=== PATIENT | male | born 1945 | race Caucasian/White ===

== ENCOUNTER 2019-07-08 20:44 | Inpatient (IN) ==
[~2019-07-08 20:44] MED LIST: *HR* Amiodarone 450 MG/9 ML VIAL IVC ONE; *HR* Amiodarone Premix 360 MG/200 ML BAG IVC ONE; *HR* EPINEPHrine 1 MG/10 ML SYRINGE IVP ONE; *HR* Magnesium Sulfate 2 GM/50 ML PIGGYBACK IVPB ONE; *HR* Norepinephrine 4 MG/4 ML VIAL IVC ONE
[2019-07-08 21:17] LABS: ABG Base Excess -19 mEq/L (-2 to 3); ABG HCO3 12 mEq/L (21-27); ABG Oxygen Saturation 63 % (95-98); ABG PCO2 53 mmHg (35-45); ABG PH 6.96 pH Units (7.32-7.45); ABG PO2 51 mmHg (85-104); ABG TCO2 14 mEq/L (20-26)
[2019-07-08] MEDS ORDERED: Dexmedetomidine HCl 400 MCG/100 ML MLS IVC ONE (21:19)
[2019-07-08] MEDS ORDERED: *HR* Vasopressin 20 UNIT/ML VIAL ONE (21:22)
[2019-07-08 21:28] LABS: Hematocrit 31.1 % (37.5-50.1); Hemoglobin 9.5 g/dL (12.9-16.9); Mean Corpuscular HGB Conc 30.5 g/dL (31.6-35.5); Mean Corpuscular Hemoglobin 31.4 pg (28.0-33.3); Mean Corpuscular Volume 102.6 fL (83.0-100.0); Mean Platelet Volume 11.7 fL (9.4-12.4); Nucleated Red Blood Cells 3.5 /100 WBC (0); Platelet Count 111 K/mcL (140-400); Red Blood Count 3.03 M/mcL (4.19-5.50); Red Cell Distribution Width 16.5 % (11.5-14.5); White Blood Count 14.3 K/mcL (4.3-11.1)
[2019-07-08] MEDS ORDERED: Amiodarone Premix 360 MG/200 ML BAG IVC ONE (21:40)
[2019-07-08 21:44] LABS: INR 2.1
[2019-07-08] MEDS ORDERED: Norepinephrine 4 MG in 0.9 % Sodium Chloride 250 ML IVC SCH (21:45)
[2019-07-08] MEDS ORDERED: Vasopressin 40 UNIT in D5% in Water 100 ML IVC SCH (21:45)
[2019-07-08] MEDS ORDERED: Dexmedetomidine HCl 400 MCG/100 ML MLS IVC SCH (21:45)
--- NOTE | 2019-07-08 21:48 | Emergency Department Note ---
Disposition Clinical Impression: Cardiac arrest, Hyperkalemia, Septic shock, Acute kidney injury superimposed on CKD, Sudden cardiac , Acute respiratory failure Disposition: Admitted As Inpatient Condition: Critical Time of Disposition: 23:15 CPR HPI - General Chief Complaint: ED Cardiac Arrest/CPR Stated Complaint: full arrest Time Seen by Provider: 07/08/19 21:43 Source: EMS Mode of arrival: EMS Nursing Notes Reviewed: Yes Vital Signs Reviewed: Yes - History of Present Illness HPI Narrative: 73M with PMHx of afib on Xarelto, HTN, DM and CKD presents to the emergency department in full cardiac arrest. - Related Data Allergies Allergy/AdvReac Type Severity Reaction Status Date / Time No Known Allergies Allergy Verified 07/08/19 20:58 Limitations: ROS unobtainable due to patients medical condition CPR PMH - Past Medical History Medical history: Reports: diabetes, hypertension, renal disease - Social History Smoking Status: Unknown if ever smoked Physical Exam Physical exam unable to be performed in full due to patient being in cardiac arrest. Pupils are dilated and nonreactive. No breath sounds or heart sounds heard. Pulses palpable with compressions. Course Vital Signs Temperature 0 F L 07/08/19 20:44 Pulse Rate 0 07/08/19 20:44 Respiratory Rate 0 07/08/19 20:44 Blood Pressure 0/0 07/08/19 20:44 O2 Sat by Pulse Oximetry 0 07/08/19 20:44 Temperature 0 F L 07/08/19 20:44 Pulse Rate 0 07/08/19 20:44 Respiratory Rate 19 07/08/19 22:46 Blood Pressure 0/0 07/08/19 20:44 O2 Sat by Pulse Oximetry 98 07/08/19 22:46 Procedures - EJ/Peripheral Line Neck L Time Out Performed: Yes Skin Cleansed in Sterile Fashion: Yes Size: 18 IV Secured and Dressing Applied: Yes Patient Tolerated Procedure: well, no complications Cardiac Arrest/CPR - MDM Narrative Medical decision making narrative: Patient presented to the emergency department in full cardiac arrest at 2042. Compressions were maintained upon transfer from EMS cot to the emergency department bed. At 2043 the patient was intubated by Dr. Mendez and a first pulse check as there was a pulse. EKG was obtained at 2045 which did not demonstrate acute ST elevation. When her glucose was 237. IO was obtained in the left lower extremity. First blood pressure was 72/37. She was noted to be in V. tach at 2051 and was going in between V. tach and sinus rhythm over the next several minutes. No shocks were initially applied. He was started on levophed for blood pressure support and calcium and amiodarone 150 loading dose were given for the patient's intermittent V. tach. Pressures continued to drop to 42/21 and half a milligram of epinephrine was given through the IO. After the 150 bolus of amiodarone the patient was started on an amiodarone drip. Central venous access was obtained through the right femoral vein via ultrasound guidance by Dr. Campuzano. The patient remained in V. tach at 2100 and was hypotensive therefore shock was applied with 2 g of mag. 2 A of bicarbonate were given for the patient's significant acidosis from an ABG obtained with a pH of less than 7. The patient lost pulses at 2106 and was in V. tach, compressions were started and another 200 J shock was administered which resulted in the resumption of pulses. Another 2 g of magnesium were given at this time. A liter of normal saline was started and the patient remained in V. tach with low blood pressures at 68/49. A third shock was given due to increasing tachycardia and decreasing blood pressure at 2121. After this time the patient resumed normal sinus rhythm with good pressures and palpable pulses. Vasopressin was started at 2127 as well as Precedex as the patient began breathing over the vent and having some upper body movement. Nova was placed, EJ was obtained in the left side of the neck and the patient was taken down for CT of the head, chest, abdomen and pelvis. Patient has an elevated lactic acid of 8.7, as well as a leukocytosis. We will start the patient on Zosyn and await other lab results. 2211 - pts potassium was reported to be 7.5 therefore we will give the pt IV insulin, Dextrose, and 20mg albuterol nebs and speak with the family about further goals of care. 2245 - after a long discussion with the family about the need for dialysis versus what the patient had wished for, the family came to the conclusion that the patient would not want to be on a breathing machine or be on dialysis. The family has agreed to make the patient DNR CC and to stop all measures other than comfort care. All medications will be stopped besides IV fluids and Precedex and they have agreed to leave the patient on the ventilator. We will not pursue dialysis or treat the patient's potential sepsis and hyperkalemia with any medications at this time. Pts CT imaging did not demonstrate any acute intracranial process but CT of the abdomen shows free fluid in the abdomen and inflammation around the pancreas suggestive of PUD, duodenitis or acute pancreatitis. 2314 - pt has been admitted to the ICU on CC measures by Dr. Keen - Medical Records Medical records reviewed: Yes I reviewed the patient's medical records. - Lab Data Lab results reviewed: Yes I reviewed the patient's lab results. Result diagrams: 07/08/19 20:53 07/08/19 21:20 Lab Results 07/08/19 07/08/19 07/08/19 Range/Units 20:53 20:53 21:00 WBC 14.3 H (4.3-11.1) K/mcL RBC 3.03 L (4.19-5.50) M/mcL Hgb 9.5 L (12.9-16.9) g/dL Hct 31.1 L (37.5-50.1) % MCV 102.6 H (83.0-100.0) fL MCH 31.4 (28.0-33.3) pg MCHC 30.5 L (31.6-35.5) g/dL RDW 16.5 H (11.5-14.5) % Plt Count 111 L (140-400) K/mcL MPV 11.7 (9.4-12.4) fL Seg Neutrophils % 62.0 % Band Neutrophils % 8.0 H (0-4) % Lymphocytes % 18.0 % Monocytes % 12.0 % Neutrophils # 10.0 H (1.6-8.9) K/mcL Lymphocytes # 2.6 (0.6-4.6) K/mcL Monocytes # 1.7 H (0.0-1.3) K/mcL Nucleated RBCs/100 WBC 3.5 H (0) /100 WBC Reactive Lymphocytes Present A (Not Present) Platelet Estimate Decreased L (Normal) PT 24.0 H (9.4-12.1) Seconds INR 2.1 Sample Site ABG pH 6.96 L* (7.32-7.45) pH Units ABG pCO2 53 H (35-45) mmHg ABG pO2 51 L (85-104) mmHg ABG HCO3 12 L (21-27) mEq/L ABG Total CO2 14 L (20-26) mEq/L ABG O2 Saturation 63 L (95-98) % ABG Base Excess -19 L (-2 to 3) mEq/L William Test O2 Delivery Device ET Tube Inspired O2 100.0 (1-15=lpm zw72-568=%) Sodium (136-145) mEq/L Potassium (3.5-5.1) mEq/L Chloride (98-107) mEq/L Carbon Dioxide (23-29) mEq/L BUN (8-23) mg/dL Creatinine (0.70-1.30) mg/dL Est GFR ( Amer) (> 60) Est GFR (Non-Af Amer) (> 60) BUN/Creatinine Ratio (6-26) Glucose (70-105) mg/dL Calculated Osmolality (280-300) Lactic Acid (0.5-2.2) mmol/L Calcium (8.6-10.3) mg/dL Magnesium (1.6-2.6) mg/dL Total Bilirubin (0.3-1.0) mg/dL Direct Bilirubin (0.0-0.2) mg/dL Indirect Bilirubin (0.0-1.2) mg/dL AST (13-39) Units/L ALT (7-52) Units/L Alkaline Phosphatase (34-104) Units/L Serum Total Protein (6.4-8.9) g/dL Albumin (3.5-5.7) g/dL Globulin (2.4-3.5) g/dL Albumin/Globulin Ratio (1.1-2.2) [facility] Blood Type Antibody Screen 07/08/19 07/08/19 07/08/19 Range/Units 21:20 21:20 21:20 WBC (4.3-11.1) K/mcL RBC (4.19-5.50) M/mcL Hgb (12.9-16.9) g/dL Hct (37.5-50.1) % MCV (83.0-100.0) fL MCH (28.0-33.3) pg MCHC (31.6-35.5) g/dL RDW (11.5-14.5) % Plt Count (140-400) K/mcL MPV (9.4-12.4) fL Seg Neutrophils % % Band Neutrophils % (0-4) % Lymphocytes % % Monocytes % % Neutrophils # (1.6-8.9) K/mcL Lymphocytes # (0.6-4.6) K/mcL Monocytes # (0.0-1.3) K/mcL Nucleated RBCs/100 WBC (0) /100 WBC Reactive Lymphocytes (Not Present) Platelet Estimate (Normal) PT (9.4-12.1) Seconds INR Sample Site ABG pH (7.32-7.45) pH Units ABG pCO2 (35-45) mmHg ABG pO2 (85-104) mmHg ABG HCO3 (21-27) mEq/L ABG Total CO2 (20-26) mEq/L ABG O2 Saturation (95-98) % ABG Base Excess (-2 to 3) mEq/L William Test O2 Delivery Device Inspired O2 (1-15=lpm te16-286=%) Sodium 133 L (136-145) mEq/L Potassium 7.5 H* (3.5-5.1) mEq/L Chloride 103 (98-107) mEq/L Carbon Dioxide 16 L (23-29) mEq/L BUN 75 H (8-23) mg/dL Creatinine 4.30 H (0.70-1.30) mg/dL Est GFR ( Amer) 16 L (> 60) Est GFR (Non-Af Amer) 14 L (> 60) BUN/Creatinine Ratio 17 (6-26) Glucose 224 H (70-105) mg/dL Calculated Osmolality 305 H (280-300) Lactic Acid 8.7 H* (0.5-2.2) mmol/L Calcium 10.2 (8.6-10.3) mg/dL Magnesium 3.7 H (1.6-2.6) mg/dL Total Bilirubin 1.2 H (0.3-1.0) mg/dL Direct Bilirubin 0.5 H (0.0-0.2) mg/dL Indirect Bilirubin 0.7 (0.0-1.2) mg/dL AST 198 H (13-39) Units/L ALT 107 H (7-52) Units/L Alkaline Phosphatase 103 (34-104) Units/L Serum Total Protein 5.1 L (6.4-8.9) g/dL Albumin 3.0 L (3.5-5.7) g/dL Globulin 2.1 L (2.4-3.5) g/dL Albumin/Globulin Ratio 1.4 (1.1-2.2) [facility] Blood Type O POSITIVE Antibody Screen NEGATIVE 07/08/19 Range/Units 21:21 WBC (4.3-11.1) K/mcL RBC (4.19-5.50) M/mcL Hgb (12.9-16.9) g/dL Hct (37.5-50.1) % MCV (83.0-100.0) fL MCH (28.0-33.3) pg MCHC (31.6-35.5) g/dL RDW (11.5-14.5) % Plt Count (140-400) K/mcL MPV (9.4-12.4) fL Seg Neutrophils % % Band Neutrophils % (0-4) % Lymphocytes % % Monocytes % % Neutrophils # (1.6-8.9) K/mcL Lymphocytes # (0.6-4.6) K/mcL Monocytes # (0.0-1.3) K/mcL Nucleated RBCs/100 WBC (0) /100 WBC Reactive Lymphocytes (Not Present) Platelet Estimate (Normal) PT (9.4-12.1) Seconds INR Sample Site L Fem ABG pH 7.24 L D (7.32-7.45) pH Units ABG pCO2 29 L D (35-45) mmHg ABG pO2 302 H D (85-104) mmHg ABG HCO3 13 L (21-27) mEq/L ABG Total CO2 13 L (20-26) mEq/L ABG O2 Saturation 100 H (95-98) % ABG Base Excess -14 L (-2 to 3) mEq/L William Test N/A O2 Delivery Device Bagging Inspired O2 100.0 (1-15=lpm ve36-415=%) Sodium (136-145) mEq/L Potassium (3.5-5.1) mEq/L Chloride (98-107) mEq/L Carbon Dioxide (23-29) mEq/L BUN (8-23) mg/dL Creatinine (0.70-1.30) mg/dL Est GFR ( Amer) (> 60) Est GFR (Non-Af Amer) (> 60) BUN/Creatinine Ratio (6-26) Glucose (70-105) mg/dL Calculated Osmolality (280-300) Lactic Acid (0.5-2.2) mmol/L Calcium (8.6-10.3) mg/dL Magnesium (1.6-2.6) mg/dL Total Bilirubin (0.3-1.0) mg/dL Direct Bilirubin (0.0-0.2) mg/dL Indirect Bilirubin (0.0-1.2) mg/dL AST (13-39) Units/L ALT (7-52) Units/L Alkaline Phosphatase (34-104) Units/L Serum Total Protein (6.4-8.9) g/dL Albumin (3.5-5.7) g/dL Globulin (2.4-3.5) g/dL Albumin/Globulin Ratio (1.1-2.2) Person Notif of Crit Blood Type Antibody Screen - Radiology Data Radiology results reviewed: Yes I reviewed the patient's radiology results. - EKG Data EKG attestation: Yes I reviewed and interpreted this EKG. EKG results narrative: EKG obtained at 5 on 07/08/2019 Sinus tachycardia with right bundle branch block at 109 bpm. No signs of ST seg ment elevations or depressions. No acute T-wave abnormalities. No old EKG for comparison. Repeat EKG obtained at 2151 on EKG read as atrial fibrillation but in actuality seems to be normal sinus rhythm at 89 bpm. Nonspecific intraventricular conduction delay. No signs of ST segment elevations or depressions. Attestation Statement - Attestation Attestation: I have seen this patient with the resident physician, I have personally evaluated this patient. I had reviewed the chart and document dictation by the resident physician and aM in agreement with the information documented by the resident physician. Please see documentation by the resident physician for complete chart including past medical history, family medical history, review of systems, current history and physical and laboratory and imaging studies. I was present for all procedures, provided direct supervision for all proced ures, was present for the entirety of all procedures and provided direct guidance during the procedures. Please see documentation by the resident physician for any procedures performed. I have reviewed all interpretations of EKGs, and reviewed all EKGs performed on patient's as well. I have also reviewed reports of imaging as provided by radiology.
[2019-07-08 21:55] LABS: Lymphocytes # 2.6 K/mcL (0.6-4.6); Monocytes # 1.7 K/mcL (0.0-1.3); Reactive Lymphocytes Present (Not Present)
[2019-07-08 21:56] LABS: Platelet Estimate Decreased (Normal)
[2019-07-08] MEDS ORDERED: Piperacillin/Tazobactam 3.375 GM in 0.9 % Sodium Chloride Mini Bag 100 ML IVPB ONE (21:57)
--- NOTE | 2019-07-08 21:58 | Emergency Department Note ---
Disposition Clinical Impression: Cardiac arrest, Hyperkalemia, Septic shock, Acute kidney injury superimposed on CKD, Sudden cardiac , Acute respiratory failure Disposition: Admitted As Inpatient Condition: Critical Time of Disposition: 22:00 General Adult HPI - General Chief complaint: ED Cardiac Arrest/CPR Stated complaint: full arrest Time Seen by Provider: 07/08/19 21:43 Source: EMS Mode of arrival: EMS - History of Present Illness HPI Narrative: This is a procedure note only. Please refer to Dr. Segal's and Dr. Dumont's for further evaluation and treatment of this patient. Pain Scale: 0 - Related Data Allergies Allergy/AdvReac Type Severity Reaction Status Date / Time No Known Allergies Allergy Verified 07/08/19 20:58 Past Medical History - Past Medical History Medical history: Reports: diabetes, hypertension, renal disease - Social History Smoking Status: Unknown if ever smoked Course Vital Signs Temperature 0 F L 07/08/19 20:44 Pulse Rate 0 07/08/19 20:44 Respiratory Rate 0 07/08/19 20:44 Blood Pressure 0/0 07/08/19 20:44 O2 Sat by Pulse Oximetry 0 07/08/19 20:44 Temperature 0 F L 07/08/19 20:44 Pulse Rate 0 07/08/19 20:44 Respiratory Rate 0 07/08/19 20:44 Blood Pressure 0/0 07/08/19 20:44 O2 Sat by Pulse Oximetry 0 07/08/19 20:44 Procedures - Central Line Placement Right Femoral Central Line Inserted*: Yes Central Line Insertion: emergent Procedural Pause: verify patient name and date of , keith and assess the site, assemble equipment and verify supplies, perform hand hygiene Patient Placed on Monitor/Pulse Ox: Yes During the Procedure: clinician is wearing sterile gloves, cap, mask,& gown during insertion, sterile field and sterile technique are maintained, patient's face is covered with drape or mask and wearing a cap Central Line Prep: Chlorhexidine scrub, sterile drapes applied Prep the Procedure Site: apply chloraprep to the skin using a back and forth scrubbing motion, allow prep to dry, drape the patient with a full body drape Ultrasound Used for Placement: Yes Central Line Lumen Inserted: triple Post Procedure: sutured in place, good blood return (In one port.), all ports aspirated, flushed, capped, sterile dressing applied, guide wire removed and visualized Patient Tolerated Procedure: well Complications: hematoma at puncture site, arterial puncture/cannulation Name of Clinician Inserting Central Line: Pollo Campuzano Clinician Assisting/Completing Checklist: Edmundo Dumont Date: 07/08/19 Time: 21:15 Medical Decision Making - Lab Data Result diagrams: 07/08/19 20:53 07/08/19 21:20 Lab Results 07/08/19 07/08/19 07/08/19 Range/Units 20:53 20:53 21:00 WBC 14.3 H (4.3-11.1) K/mcL RBC 3.03 L (4.19-5.50) M/mcL Hgb 9.5 L (12.9-16.9) g/dL Hct 31.1 L (37.5-50.1) % MCV 102.6 H (83.0-100.0) fL MCH 31.4 (28.0-33.3) pg MCHC 30.5 L (31.6-35.5) g/dL RDW 16.5 H (11.5-14.5) % Plt Count 111 L (140-400) K/mcL MPV 11.7 (9.4-12.4) fL Seg Neutrophils % 62.0 % Band Neutrophils % 8.0 H (0-4) % Lymphocytes % 18.0 % Monocytes % 12.0 % Neutrophils # 10.0 H (1.6-8.9) K/mcL Lymphocytes # 2.6 (0.6-4.6) K/mcL Monocytes # 1.7 H (0.0-1.3) K/mcL Nucleated RBCs/100 WBC 3.5 H (0) /100 WBC Reactive Lymphocytes Present A (Not Present) Platelet Estimate Decreased L (Normal) PT 24.0 H (9.4-12.1) Seconds INR 2.1 ABG pH 6.96 L* (7.32-7.45) pH Units ABG pCO2 53 H (35-45) mmHg ABG pO2 51 L (85-104) mmHg ABG HCO3 12 L (21-27) mEq/L ABG Total CO2 14 L (20-26) mEq/L ABG O2 Saturation 63 L (95-98) % ABG Base Excess -19 L (-2 to 3) mEq/L O2 Delivery Device ET Tube Inspired O2 100.0 (1-15=lpm be61-221=%) Lactic Acid (0.5-2.2) mmol/L Person Notif of Crit edmundo dumont 07/08/19 Range/Units 21:20 WBC (4.3-11.1) K/mcL RBC (4.19-5.50) M/mcL Hgb (12.9-16.9) g/dL Hct (37.5-50.1) % MCV (83.0-100.0) fL MCH (28.0-33.3) pg MCHC (31.6-35.5) g/dL RDW (11.5-14.5) % Plt Count (140-400) K/mcL MPV (9.4-12.4) fL Seg Neutrophils % % Band Neutrophils % (0-4) % Lymphocytes % % Monocytes % % Neutrophils # (1.6-8.9) K/mcL Lymphocytes # (0.6-4.6) K/mcL Monocytes # (0.0-1.3) K/mcL Nucleated RBCs/100 WBC (0) /100 WBC Reactive Lymphocytes (Not Present) Platelet Estimate (Normal) PT (9.4-12.1) Seconds INR ABG pH (7.32-7.45) pH Units ABG pCO2 (35-45) mmHg ABG pO2 (85-104) mmHg ABG HCO3 (21-27) mEq/L ABG Total CO2 (20-26) mEq/L ABG O2 Saturation (95-98) % ABG Base Excess (-2 to 3) mEq/L O2 Delivery Device Inspired O2 (1-15=lpm [id number]=%) Lactic Acid 8.7 H* (0.5-2.2) mmol/L Person Notif of Crit Attestation Statement - Attestation Attestation: I have seen this patient with the resident physician, I have personally evaluated this patient. I had reviewed the chart and document dictation by the resident physician and aM in agreement with the information documented by the resident physician. Please see documentation by the resident physician for complete chart including past medical history, family medical history, review of systems, current history and physical and laboratory and imaging studies. I was present for all procedures, provided direct supervision for all procedures, was present for the entirety of all procedures and provided direct guidance during the procedures. Please see documentation by the resident physician for any procedures performed. I have reviewed all interpretations of EKGs, and reviewed all EKGs performed on patient's as well. I have also reviewed reports of imaging as provided by radiology.
[2019-07-08 22:07] LABS: Albumin/Globulin Ratio 1.4 (1.1-2.2); Bilirubin,Direct 0.5 mg/dL (0.0-0.2); Bilirubin,Indirect 0.7 mg/dL (0.0-1.2); Bilirubin,Total 1.2 mg/dL (0.3-1.0); Calcium 10.2 mg/dL (8.6-10.3); Globulin 2.1 g/dL (2.4-3.5); Magnesium 3.7 mg/dL (1.6-2.6); Potassium 7.5 mEq/L (3.5-5.1); Total Protein 5.1 g/dL (6.4-8.9)
[2019-07-08] MEDS ORDERED: Insulin Human Regular 10 UNIT in 0.9 % Sodium Chloride 10 ML IV ONE (22:07)
[2019-07-08] MEDS ORDERED: *HR* Dextrose 50 % in Water (Syg) 50 ML SYRINGE IVP ONE (22:07)
[2019-07-08] MEDS ORDERED: Albuterol 2.5 MG/3 ML NEBULIZER IH ONE (22:09)
[2019-07-08 22:41] LABS: ABG Base Excess -14 mEq/L (-2 to 3); ABG HCO3 13 mEq/L (21-27); ABG Oxygen Saturation 100 % (95-98); ABG PCO2 29 mmHg (35-45); ABG PH 7.24 pH Units (7.32-7.45); ABG PO2 302 mmHg (85-104); ABG TCO2 13 mEq/L (20-26)
--- NOTE | 2019-07-08 22:42 | Emergency Department Note ---
Disposition Clinical Impression: Cardiac arrest, Hyperkalemia, Septic shock, Acute kidney injury superimposed on CKD, Sudden cardiac , Acute respiratory failure Disposition: Admitted As Inpatient Condition: Critical Time of Disposition: 22:45 General Adult HPI - General Chief complaint: ED Cardiac Arrest/CPR Stated complaint: full arrest Time Seen by Provider: 07/08/19 21:43 Source: EMS Mode of arrival: EMS - History of Present Illness HPI Narrative: Procedure note only Pain Scale: 0 - Related Data Allergies Allergy/AdvReac Type Severity Reaction Status Date / Time No Known Allergies Allergy Verified 07/08/19 20:58 Past Medical History - Past Medical History Medical history: Reports: diabetes, hypertension, renal disease - Social History Smoking Status: Unknown if ever smoked Course Vital Signs Temperature 0 F L 07/08/19 20:44 Pulse Rate 0 07/08/19 20:44 Respiratory Rate 0 07/08/19 20:44 Blood Pressure 0/0 07/08/19 20:44 O2 Sat by Pulse Oximetry 0 07/08/19 20:44 Temperature 0 F L 07/08/19 20:44 Pulse Rate 0 07/08/19 20:44 Respiratory Rate 19 07/08/19 22:34 Blood Pressure 0/0 07/08/19 20:44 O2 Sat by Pulse Oximetry 99 07/08/19 22:34 Procedures - Intubation Time out performed: No (Emergent ) sedative: none Mg Given: 0 (Full Arrest ) Laryngoscope: Sirisha ET Tube Size: 7.5 ET Tube Uncuffed: No Tube Secured Depth (cm): 25 Tube Secured Location: lips Tube Placement Confirmation: visualized tube passing through cords, equal breath sounds bilaterally, no breath sounds over epigastrium Patient Tolerated Procedure: well Medical Decision Making - Lab Data Result diagrams: 07/08/19 20:53 07/08/19 21:20 Lab Results 07/08/19 07/08/19 07/08/19 Range/Units 20:53 20:53 21:00 WBC 14.3 H (4.3-11.1) K/mcL RBC 3.03 L (4.19-5.50) M/mcL Hgb 9.5 L (12.9-16.9) g/dL Hct 31.1 L (37.5-50.1) % MCV 102.6 H (83.0-100.0) fL MCH 31.4 (28.0-33.3) pg MCHC 30.5 L (31.6-35.5) g/dL RDW 16.5 H (11.5-14.5) % Plt Count 111 L (140-400) K/mcL MPV 11.7 (9.4-12.4) fL Seg Neutrophils % 62.0 % Band Neutrophils % 8.0 H (0-4) % Lymphocytes % 18.0 % Monocytes % 12.0 % Neutrophils # 10.0 H (1.6-8.9) K/mcL Lymphocytes # 2.6 (0.6-4.6) K/mcL Monocytes # 1.7 H (0.0-1.3) K/mcL Nucleated RBCs/100 WBC 3.5 H (0) /100 WBC Reactive Lymphocytes Present A (Not Present) Platelet Estimate Decreased L (Normal) PT 24.0 H (9.4-12.1) Seconds INR 2.1 ABG pH 6.96 L* (7.32-7.45) pH Units ABG pCO2 53 H (35-45) mmHg ABG pO2 51 L (85-104) mmHg ABG HCO3 12 L (21-27) mEq/L ABG Total CO2 14 L (20-26) mEq/L ABG O2 Saturation 63 L (95-98) % ABG Base Excess -19 L (-2 to 3) mEq/L O2 Delivery Device ET Tube Inspired O2 100.0 (1-15=lpm [id number]=%) Sodium (136-145) mEq/L Potassium (3.5-5.1) mEq/L Chloride (98-107) mEq/L Carbon Dioxide (23-29) mEq/L BUN (8-23) mg/dL Creatinine (0.70-1.30) mg/dL Est GFR ( Amer) (> 60) Est GFR (Non-Af Amer) (> 60) BUN/Creatinine Ratio (6-26) Glucose (70-105) mg/dL Calculated Osmolality (280-300) Lactic Acid (0.5-2.2) mmol/L Calcium (8.6-10.3) mg/dL Magnesium (1.6-2.6) mg/dL Total Bilirubin (0.3-1.0) mg/dL Direct Bilirubin (0.0-0.2) mg/dL Indirect Bilirubin (0.0-1.2) mg/dL AST (13-39) Units/L ALT (7-52) Units/L Alkaline Phosphatase (34-104) Units/L Serum Total Protein (6.4-8.9) g/dL Albumin (3.5-5.7) g/dL Globulin (2.4-3.5) g/dL Albumin/Globulin Ratio (1.1-2.2) Person Notif of [facility] kenton dumont Blood Type Antibody Screen 07/08/19 07/08/19 07/08/19 Range/Units 21:20 21:20 21:20 WBC (4.3-11.1) K/mcL RBC (4.19-5.50) M/mcL Hgb (12.9-16.9) g/dL Hct (37.5-50.1) % MCV (83.0-100.0) fL MCH (28.0-33.3) pg MCHC (31.6-35.5) g/dL RDW (11.5-14.5) % Plt Count (140-400) K/mcL MPV (9.4-12.4) fL Seg Neutrophils % % Band Neutrophils % (0-4) % Lymphocytes % % Monocytes % % Neutrophils # (1.6-8.9) K/mcL Lymphocytes # (0.6-4.6) K/mcL Monocytes # (0.0-1.3) K/mcL Nucleated RBCs/100 WBC (0) /100 WBC Reactive Lymphocytes (Not Present) Platelet Estimate (Normal) PT (9.4-12.1) Seconds INR ABG pH (7.32-7.45) pH Units ABG pCO2 (35-45) mmHg ABG pO2 (85-104) mmHg ABG HCO3 (21-27) mEq/L ABG Total CO2 (20-26) mEq/L ABG O2 Saturation (95-98) % ABG Base Excess (-2 to 3) mEq/L O2 Delivery Device Inspired O2 (1-15=lpm ko55-114=%) Sodium 133 L (136-145) mEq/L Potassium 7.5 H* (3.5-5.1) mEq/L Chloride 103 (98-107) mEq/L Carbon Dioxide 16 L (23-29) mEq/L BUN 75 H (8-23) mg/dL Creatinine 4.30 H (0.70-1.30) mg/dL Est GFR ( Amer) 16 L (> 60) Est GFR (Non-Af Amer) 14 L (> 60) BUN/Creatinine Ratio 17 (6-26) Glucose 224 H (70-105) mg/dL Calculated Osmolality 305 H (280-300) Lactic Acid 8.7 H* (0.5-2.2) mmol/L Calcium 10.2 (8.6-10.3) mg/dL Magnesium 3.7 H (1.6-2.6) mg/dL Total Bilirubin 1.2 H (0.3-1.0) mg/dL Direct Bilirubin 0.5 H (0.0-0.2) mg/dL Indirect Bilirubin 0.7 (0.0-1.2) mg/dL AST 198 H (13-39) Units/L ALT 107 H (7-52) Units/L Alkaline Phosphatase 103 (34-104) Units/L Serum Total Protein 5.1 L (6.4-8.9) g/dL Albumin 3.0 L (3.5-5.7) g/dL Globulin 2.1 L (2.4-3.5) g/dL Albumin/Globulin Ratio 1.4 (1.1-2.2) Person Notif of Crit Blood Type O POSITIVE Antibody Screen NEGATIVE Attestation Statement - Attestation Attestation: I have seen this patient with the resident physician, I have personally evaluated this patient. I had reviewed the chart and document dictation by the resident physician and aM in agreement with the information documented by the resident physician. Please see documentation by the resident physician for complete chart including past medical history, family medical history, review of systems, current history and physical and laboratory and imaging studies. I was present for all procedures, provided direct supervision for all procedures, was present for the entirety of all procedures and provided direct guidance during the procedures. Please see documentation by the resident physician for any procedures performed. I have reviewed all interpretations of EKGs, and reviewed all EKGs performed on patient's as well. I have also reviewed reports of imaging as provided by radiology.
--- NOTE | 2019-07-08 23:17 | Emergency Department Note ---
Disposition Clinical Impression: Cardiac arrest, Sudden cardiac , Acute respiratory failure, Hyperkalemia, Septic shock, Acute kidney injury superimposed on CKD Disposition: Admitted As Inpatient Condition: Critical Referrals: NONE,PCP [Primary Care Provider] - Forms: ED Satisfaction Letter Time of Disposition: 23:17 General Adult HPI - General Chief complaint: ED Cardiac Arrest/CPR Stated complaint: full arrest Time Seen by Provider: 07/08/19 21:43 Source: EMS Mode of arrival: EMS Limitations: no limitations Nursing Notes Reviewed: Yes Vital Signs Reviewed: Yes - History of Present Illness Pain Scale: 0 - Related Data Allergies Allergy/AdvReac Type Severity Reaction Status Date / Time No Known Allergies Allergy Verified 07/08/19 20:58 All systems ED: reviewed and negative except as stated. Review of Systems: As Per HPI Past Medical History - Past Medical History Medical history: Reports: diabetes, hypertension, renal disease - Social History Smoking Status: Unknown if ever smoked Course Vital Signs Temperature 0 F L 07/08/19 20:44 Pulse Rate 0 07/08/19 20:44 Respiratory Rate 0 07/08/19 20:44 Blood Pressure 0/0 07/08/19 20:44 O2 Sat by Pulse Oximetry 0 07/08/19 20:44 Temperature 0 F L 07/08/19 20:44 Pulse Rate 0 07/08/19 20:44 Respiratory Rate 19 07/08/19 22:46 Blood Pressure 0/0 07/08/19 20:44 O2 Sat by Pulse Oximetry 98 07/08/19 22:46 Medical Decision Making - Lab Data Result diagrams: 07/08/19 20:53 07/08/19 21:20 Lab Results 07/08/19 07/08/19 07/08/19 Range/Units 20:53 20:53 21:00 WBC 14.3 H (4.3-11.1) K/mcL RBC 3.03 L (4.19-5.50) M/mcL Hgb 9.5 L (12.9-16.9) g/dL Hct 31.1 L (37.5-50.1) % MCV 102.6 H (83.0-100.0) fL MCH 31.4 (28.0-33.3) pg MCHC 30.5 L (31.6-35.5) g/dL RDW 16.5 H (11.5-14.5) % Plt Count 111 L (140-400) K/mcL MPV 11.7 (9.4-12.4) fL Seg Neutrophils % 62.0 % Band Neutrophils % 8.0 H (0-4) % Lymphocytes % 18.0 % Monocytes % 12.0 % Neutrophils # 10.0 H (1.6-8.9) K/mcL Lymphocytes # 2.6 (0.6-4.6) K/mcL Monocytes # 1.7 H (0.0-1.3) K/mcL Nucleated RBCs/100 WBC 3.5 H (0) /100 WBC Reactive Lymphocytes Present A (Not Present) Platelet Estimate Decreased L (Normal) PT 24.0 H (9.4-12.1) Seconds INR 2.1 Sample Site ABG pH 6.96 L* (7.32-7.45) pH Units ABG pCO2 53 H (35-45) mmHg ABG pO2 51 L (85-104) mmHg ABG HCO3 12 L (21-27) mEq/L ABG Total CO2 14 L (20-26) mEq/L ABG O2 Saturation 63 L (95-98) % ABG Base Excess -19 L (-2 to 3) mEq/L William Test O2 Delivery Device ET Tube Inspired O2 100.0 (1-15=lpm [id number]=%) Sodium (136-145) mEq/L Potassium (3.5-5.1) mEq/L Chloride (98-107) mEq/L Carbon Dioxide (23-29) mEq/L BUN (8-23) mg/dL Creatinine (0.70-1.30) mg/dL Est GFR ( Amer) (> 60) Est GFR (Non-Af Amer) (> 60) BUN/Creatinine Ratio (6-26) Glucose (70-105) mg/dL Calculated Osmolality (280-300) Lactic Acid (0.5-2.2) mmol/L Calcium (8.6-10.3) mg/dL Magnesium (1.6-2.6) mg/dL Total Bilirubin (0.3-1.0) mg/dL Direct Bilirubin (0.0-0.2) mg/dL Indirect Bilirubin (0.0-1.2) mg/dL AST (13-39) Units/L ALT (7-52) Units/L Alkaline Phosphatase (34-104) Units/L Serum Total Protein (6.4-8.9) g/dL Albumin (3.5-5.7) g/dL Globulin (2.4-3.5) g/dL Albumin/Globulin Ratio (1.1-2.2) Person Notif of [facility] [place] Blood Type Antibody Screen 07/08/19 07/08/19 07/08/19 Range/Units 21:20 21:20 21:20 WBC (4.3-11.1) K/mcL RBC (4.19-5.50) M/mcL Hgb (12.9-16.9) g/dL Hct (37.5-50.1) % MCV (83.0-100.0) fL MCH (28.0-33.3) pg MCHC (31.6-35.5) g/dL RDW (11.5-14.5) % Plt Count (140-400) K/mcL MPV (9.4-12.4) fL Seg Neutrophils % % Band Neutrophils % (0-4) % Lymphocytes % % Monocytes % % Neutrophils # (1.6-8.9) K/mcL Lymphocytes # (0.6-4.6) K/mcL Monocytes # (0.0-1.3) K/mcL Nucleated RBCs/100 WBC (0) /100 WBC Reactive Lymphocytes (Not Present) Platelet Estimate (Normal) PT (9.4-12.1) Seconds INR Sample Site ABG pH (7.32-7.45) pH Units ABG pCO2 (35-45) mmHg ABG pO2 (85-104) mmHg ABG HCO3 (21-27) mEq/L ABG Total CO2 (20-26) mEq/L ABG O2 Saturation (95-98) % ABG Base Excess (-2 to 3) mEq/L William Test O2 Delivery Device Inspired O2 (1-15=lpm [id number]=%) Sodium 133 L (136-145) mEq/L Potassium 7.5 H* (3.5-5.1) mEq/L Chloride 103 (98-107) mEq/L Carbon Dioxide 16 L (23-29) mEq/L BUN 75 H (8-23) mg/dL Creatinine 4.30 H (0.70-1.30) mg/dL Est GFR ( Amer) 16 L (> 60) Est GFR (Non-Af Amer) 14 L (> 60) BUN/Creatinine Ratio 17 (6-26) Glucose 224 H (70-105) mg/dL Calculated Osmolality 305 H (280-300) Lactic Acid 8.7 H* (0.5-2.2) mmol/L Calcium 10.2 (8.6-10.3) mg/dL Magnesium 3.7 H (1.6-2.6) mg/dL Total Bilirubin 1.2 H (0.3-1.0) mg/dL Direct Bilirubin 0.5 H (0.0-0.2) mg/dL Indirect Bilirubin 0.7 (0.0-1.2) mg/dL AST 198 H (13-39) Units/L ALT 107 H (7-52) Units/L Alkaline Phosphatase 103 (34-104) Units/L Serum Total Protein 5.1 L (6.4-8.9) g/dL Albumin 3.0 L (3.5-5.7) g/dL Globulin 2.1 L (2.4-3.5) g/dL Albumin/Globulin Ratio 1.4 (1.1-2.2) [facility] Type O POSITIVE Antibody Screen NEGATIVE 07/08/19 Range/Units 21:21 WBC (4.3-11.1) K/mcL RBC (4.19-5.50) M/mcL Hgb (12.9-16.9) g/dL Hct (37.5-50.1) % MCV (83.0-100.0) fL MCH (28.0-33.3) pg MCHC (31.6-35.5) g/dL RDW (11.5-14.5) % Plt Count (140-400) K/mcL MPV (9.4-12.4) fL Seg Neutrophils % % Band Neutrophils % (0-4) % Lymphocytes % % Monocytes % % Neutrophils # (1.6-8.9) K/mcL Lymphocytes # (0.6-4.6) K/mcL Monocytes # (0.0-1.3) K/mcL Nucleated RBCs/100 WBC (0) /100 WBC Reactive Lymphocytes (Not Present) Platelet Estimate (Normal) PT (9.4-12.1) Seconds INR Sample Site L Fem ABG pH 7.24 L D (7.32-7.45) pH Units ABG pCO2 29 L D (35-45) mmHg ABG pO2 302 H D (85-104) mmHg ABG HCO3 13 L (21-27) mEq/L ABG Total CO2 13 L (20-26) mEq/L ABG O2 Saturation 100 H (95-98) % ABG Base Excess -14 L (-2 to 3) mEq/L William Test N/A O2 Delivery Device Bagging Inspired O2 100.0 (1-15=lpm [id number]=%) Sodium (136-145) mEq/L Potassium (3.5-5.1) mEq/L Chloride (98-107) mEq/L Carbon Dioxide (23-29) mEq/L BUN (8-23) mg/dL Creatinine (0.70-1.30) mg/dL Est GFR ( Amer) (> 60) Est GFR (Non-Af Amer) (> 60) BUN/Creatinine Ratio (6-26) Glucose (70-105) mg/dL Calculated Osmolality (280-300) Lactic Acid (0.5-2.2) mmol/L Calcium (8.6-10.3) mg/dL Magnesium (1.6-2.6) mg/dL Total Bilirubin (0.3-1.0) mg/dL Direct Bilirubin (0.0-0.2) mg/dL Indirect Bilirubin (0.0-1.2) mg/dL AST (13-39) Units/L ALT (7-52) Units/L Alkaline Phosphatase (34-104) Units/L Serum Total Protein (6.4-8.9) g/dL Albumin (3.5-5.7) g/dL Globulin (2.4-3.5) g/dL Albumin/Globulin Ratio (1.1-2.2) Person Notif of Crit Blood Type Antibody Screen Attestation Statement - Attestation Attestation: I have seen this patient with the resident physician, I have personally evaluated this patient. I had reviewed the chart and document dictation by the resident physician and aM in agreement with the information documented by the resident physician. Please see documentation by the resident physician for complete chart including past medical history, family medical history, review of systems, current history and physical and laboratory and imaging studies. I was present for all procedures, provided direct supervision for all procedures, was present for the entirety of all procedures and provided direct guidance during the procedures. Please see documentation by the resident physician for any procedures performed. I have reviewed all interpretations of EKGs, and reviewed all EKGs performed on patient's as well. I have also reviewed reports of imaging as provided by radiology. Patient presented to the emergency department in cardiac arrest. The paramedics were called because the patient slumped over and stop breathing at home, paramedics report that upon arrival he was blue they started bagging him checked a fingerstick and did CPR and brought him to the ER. Upon arrival he had no pulse, CPR was in process, she was intubated by the resident physician under my direct guidance. Patient had return of spontaneous circulation thereafter., However then the patient had significant cardiac irregularity and irritability, with multiple different rhythms including ventricular tachycardia torsades, sinus tachycardia, all appeared wide he was treated with calcium, amiodarone, electrical cardioversion, bicarbonate, magnesium, a fingerstick was checked. A central venous line was placed in an intraosseous line was placed, he did require subsequent shocks. After amiodarone amiodarone drip, multiple doses of the above medications, calcium, bicarbonate, he did have another run of V. tach, for which she received electrocardioversion and then had a spontaneous cardioversion into a sinus rhythm on the with rates in the 60s. Blood pressures did improve with this. He then had another EKG which showed a slightly wide complex sinus rhythm. He had a norepinephrine drip started during all of this as well as a vasopressin drip started during his arrest, for hypotension. Please see documentation by the nursing for timing of all medications and initiation of all medications given. He was taken to head CT, and chest and pelvis CT by myself, and the nursing staff. I did not see any abnormality on the CT scans as there being performed i n relation to intracranial hemorrhage, or aneurysm in the chest abdomen or pelvis or obvious free fluid or free air. There was some nonspecific inflammatory stranding in the upper abdomen, this was also interpreted by radiology as the same. His physical examination was somewhat limited upon arrival secondary to his extreme condition, no obvious evidence of trauma pupils were midrange and minimally to nonreactive. He was with no spontaneous movement. After the above management he did start breathing over the vent he was placed on a Precedex drip. Laboratory studies were all reviewed, we are continuing to manage this patient aggressively with IV fluids IV pressors IV antibiotics, and were initiating management beyond what we already initiated for hyperkalemia as his potassium came back significant elevated we do get a repeat ABG which showed CHF improvement from initial with pH improvement from 6.9-7.24. Family arrived and I had a long conversation with the patient's son the patient's sister and the patient's brother who is also a attendant children's institution. They state that he would not want any of this the patient's brother who is a attendant children's institution states that he just met with him last week and the patient specifically expressed his wishes that he was ready to pass away he did not want aggressive management he would never want dialysis because his on dialysis, he would never want to be on prolonged resuscitation. After long discussion with the family they wanted him to be made a DNR CC all family members including the son who is the closest living relative and the sister and brother are in agreement that this is what this patient would want. They have requested that I stop all supportive management except for maintenance fluids, sedation and leaving and his ventilator support they do not want aggressive management of infection sepsis renal failure he would not want dialysis he would not want pressor medications. At their wishes we stopped these medications and supportive measures, continued with IV sedation, and the ventilator and continued with gentle hydration through the IV and the patient was admitted for further management. Total critical care time as provided by myself excluding any procedures performed was 90 minutes. Please see documentation by the resident physician's for intubation note and central venous line placement, I was present for all of these procedures throughout all of these procedures.
[2019-07-08] MEDS ORDERED: FentaNYL (PF) 1,000 MCG in 0.9 % Sodium Chloride 80 ML IVC SCH (23:45)
--- NOTE | 2019-07-09 00:03 | Internal Med History&Physical ---
<Vale Reyna - Last Filed: 07/09/19 05:29> Date of Encounter: 07/09/19 Time of Encounter: 00:24 Internal Medicine - H&P: HPI Chief complaint: post cardiac arrest Admitted From: Emergency Dept History of present illness: Mr. Felix is a 73 year old male who presented to ED in cardiac arrest by EMS after family had found the patient slumped over, not breathing at home. EMS performed CPR and bagged patient while en route. CPR continued in emergency department and there was ROSC, however cardiac rhythm was irregular and demon strating V. tach multiple times. He was treated with amiodarone, electrical cardioversion, defibrillation, electrolyte replacement before spontaneous conversion to sinus rhythm. CVC and IO placed in emergency department. Norepinephrine and vasopressin drips were started during his arrest for hypo tension. Initial lab workup significant for hyperkalemia 7.5, creatinine 4.3, WBC 14.3, hemoglobin 9.5 , and thrombocytopenia. Initial ABG significant for metabolic acidosis (pH 6.9, PCO2 53, PO2 51, bicarbonate 12), pH improved to 7.24 on repeat ABG. Patient was taken for CT imaging of head, cervical spine, chest, abdomen/pelvis. CT head negative for acute intracranial process and CT cervical spine negative for acute abnormality. CT of chest abdomen pelvis notable for ground glass nodular opacities in the upper zones of the lungs that may suggest infectious/inflammatory process; moderate free fluid of upper abdomen of unclear etiology, inflammatory stranding in peripancreatic area, thickened pylorus wall. Additional management in the emergency department included IV fluids and IV a ntibiotics; Precedex drip for sedation. ED physician discussed patient's critical status, including need for dialysis and antibiotics, with patient's family. Patient's family did not believe he would want dialysis or prolonged resuscitation and agreed on CODE STATUS of DNR-CC. He was transferred to the ICU for further management and ventilator support. Past Med Surg Social Fam HX - Past Medical History Medical history: diabetes, hypertension, renal disease - Social History Smoking Status: Unknown if ever smoked Internal Medicine - H&P: Meds 3 Allergy/AdvReac Type Severity Reaction Status Date / Time No Known Allergies Allergy Verified 07/08/19 20:58 ROS unobtainable: due to endotracheal tube All Systems PM: A 10-system review of systems was performed and is negative for pertinent findings except as documented above in the HPI. - Constitutional Vitals: Temp Pulse Resp BP Pulse Ox 0 F L 0 16 52/41 98 07/08/19 20:44 07/08/19 20:44 07/08/19 23:35 07/08/19 23:35 07/08/19 22:46 Exam: General: No acute distress, intubated and sedated on mechanical ventilation HEENT: head normocephalic/atraumatic, PERRL, sclera anicteric, dry oral mucosa Neck: trachea midline, no visible masses Cardio: regular rate, hypotensive, diminished peripheral pulses Pulm: coarse breath sounds bilaterally, equal chest rise, no wheezing, no respiratory distress Abdomen: soft, non-distended, active bowel sounds Extremities: Bilateral lower extremity edema, cool to palpation, faint radial pulse on palpation, no visible cyanosis MSK: no visible deformities, no joint swelling or erythema Neuro: Unable to assess mental status secondary to sedation on mechanical ventilation, pupils constricted with minimal and sluggish reaction to light, no corneal reflex, no response to verbal stimuli Skin: dry, chronic appearing ulcers of feet and lower extremities, no visible rash Psych: Unable to assess mental status secondary to sedation Internal Med - H&P Results - Labs CBC & Chem 7: 07/08/19 20:53 07/08/19 21:20 Labs: Short CBC 07/08/19 Range/Units 20:53 WBC 14.3 H (4.3-11.1) K/mcL Hgb 9.5 L (12.9-16.9) g/dL Hct 31.1 L (37.5-50.1) % Plt Count 111 L (140-400) K/mcL Neutrophils # 10.0 H (1.6-8.9) K/mcL BMP 07/08/19 21:20 Sodium 133 L Potassium 7.5 H* Chloride 103 Carbon Dioxide 16 L BUN 75 H Creatinine 4.30 H Glucose 224 H Calcium 10.2 Liver Function 07/08/19 Range/Units 21:20 Total Bilirubin 1.2 H (0.3-1.0) mg/dL Direct Bilirubin 0.5 H (0.0-0.2) mg/dL AST 198 H (13-39) Units/L ALT 107 H (7-52) Units/L Alkaline Phosphatase 103 (34-104) Units/L Albumin 3.0 L (3.5-5.7) g/dL - ABG Interpretation ABG results: 07/08/19 07/08/19 21:00 21:21 ABG pH 6.96 L* 7.24 L D ABG pCO2 53 H 29 L D ABG pO2 51 L 302 H D ABG HCO3 12 L 13 L ABG Total CO2 14 L 13 L ABG O2 Saturation 63 L 100 H ABG Base Excess -19 L -14 L - Impressions ITS Impressions Head CT 07/08/19 22:24 IMPRESSION: No acute intracranial abnormality. Diffuse atrophic changes with findings suggesting chronic microvascular ischemia D/ / Louie Hare MD / Louie Hare MD Interpreting Provider: Louie Hare MD Abdomen/Pelvis CT 07/08/19 22:27 IMPRESSION: 1. Moderate free fluid identified in the upper abdomen of unclear etiology. Inflammatory stranding is also seen adjacent to the pancreas. Mild wall thickening of the pylorus is present. Differential considerations include duodenitis, peptic ulcer disease, or acute pancreatitis. Correlate with symptoms and laboratory values. 2. Subtle ground-glass nodular opacities in the upper lung zones. Findings favor an infectious/inflammatory etiology. Recommend repeat CT in 6 months. 3. Cardiomegaly. 4. Cholecystectomy. 5. Diverticulosis. D/ / 07/08/2019 22:43:30 Shyanne Mohan MD / terry Interpreting Provider: Shyanne Mohan MD Cervical Spine CT 07/08/19 22:27 IMPRESSION: No acute abnormality of the cervical spine. Euxllhfw-dz-cwifak multilevel degenerative changes. D/ / 07/08/2019 22:31:31 Shyanne Mohan MD / terry Interpreting Provider: Shyanne Mohan MD Chest CT 07/08/19 22:27 IMPRESSION: 1. Moderate free fluid identified in the upper abdomen of unclear etiology. Inflammatory stranding is also seen adjacent to the pancreas. Mild wall thickening of the pylorus is present. Differential considerations include duodenitis, peptic ulcer disease, or acute pancreatitis. Correlate with symptoms and laboratory values. 2. Subtle ground-glass nodular opacities in the upper lung zones. Findings favor an infectious/inflammatory etiology. Recommend repeat CT in 6 months. 3. Cardiomegaly. 4. Cholecystectomy. 5. Diverticulosis. D/ / 07/08/2019 22:43:30 Shyanne Mohan MD / leonard Interpreting Provider: Shyanne Mohan MD - Assessment and Plan (1) Cardiac arrest Current Visit: Yes Status: Acute Assessment and plan: Acute respiratory failure with hypoxia and hypercarbia secondary to cardiac arrest Intubated and placed on mechanical ventilation in ED Significant metabolic acidosis on initial ABG, mild improvement on subsequent ABG Head CT negative for acute intracranial abnormality Cervical spine CT negative for acute abnormality CT chest abdomen pelvis shows subtle groundglass nodular opacities in upper lungs suggest infectious/inflammatory etiology Code status confirmed with family as DNR-CC Will discontinue cardiac monitoring (2) Acute respiratory failure Current Visit: Yes Status: Acute Assessment and plan: Acute respiratory failure with hypoxia and hypercarbia secondary to cardiac arrest Intubated and placed on mechanical ventilation in ED Significant metabolic acidosis on initial ABG, mild improvement on subsequent ABG Head CT negative for acute intracranial abnormality Cervical spine CT negative for acute abnormality CT chest abdomen pelvis shows subtle groundglass nodular opacities in upper lungs suggest infectious/inflammatory etiology Code status confirmed with family as DNR-CC and family expresses wishes for compassionate extubation Discontinue telemetry monitoring Patient extubated and ventilatory support turned off at 00:41 Doesn't appear to be in respiratory distress, if this develops recommend use of morphine to help with symptoms of air hunger Qualifiers: Respiratory failure complication: hypoxia and hypercapnia Qualified Code(s): J96.01 - Acute respiratory failure with hypoxia; J96.02 - Acute respiratory failure with hypercapnia (3) Acute kidney injury superimposed on CKD Current Visit: Yes Status: Acute Assessment and plan: Cr 4.3, no baseline available Will not correct as family wishes for comfort care measure only (4) Hyperkalemia Current Visit: Yes Status: Acute Assessment and plan: Potassium 7.5 Will not correct as family wishes for comfort care measure only (5) DVT prophylaxis Current Visit: Yes Status: Acute Assessment and plan: No AC, family wishes for comfort care measure only - Time Spent With Patient Total time spent is greater than 50% in coordination of care (as documented) at patient's floor/unit and/or counseling patient: <Rachele Lima - Last Filed: 07/09/19 06:45> Date of Encounter: 07/09/19 All Systems PM: A 10-system review of systems was performed and is negative for pertinent findings except as documented above in the HPI. - Constitutional Vitals: Temp Pulse Resp BP Pulse Ox 95.3 F L 66 20 57/41 97 07/09/19 00:19 07/09/19 00:19 07/09/19 00:19 07/09/19 00:19 07/09/19 00:19 Internal Med - H&P Results - Labs CBC & Chem 7: 07/08/19 20:53 07/08/19 21:20 Labs: Short CBC 07/08/19 Range/Units 20:53 WBC 14.3 H (4.3-11.1) K/mcL Hgb 9.5 L (12.9-16.9) g/dL Hct 31.1 L (37.5-50.1) % Plt Count 111 L (140-400) K/mcL Neutrophils # 10.0 H (1.6-8.9) K/mcL BMP 07/08/19 21:20 Sodium 133 L Potassium 7.5 H* Chloride 103 Carbon Dioxide 16 L BUN 75 H Creatinine 4.30 H Glucose 224 H Calcium 10.2 Liver Function 07/08/19 Range/Units 21:20 Total Bilirubin 1.2 H (0.3-1.0) mg/dL Direct Bilirubin 0.5 H (0.0-0.2) mg/dL AST 198 H (13-39) Units/L ALT 107 H (7-52) Units/L Alkaline Phosphatase 103 (34-104) Units/L Albumin 3.0 L (3.5-5.7) g/dL - ABG Interpretation ABG results: 07/08/19 07/08/19 21:00 21:21 ABG pH 6.96 L* 7.24 L D ABG pCO2 53 H 29 L D ABG pO2 51 L 302 H D ABG HCO3 12 L 13 L ABG Total CO2 14 L 13 L ABG O2 Saturation 63 L 100 H ABG Base Excess -19 L -14 L - Impressions ITS Impressions Head CT 07/08/19 22:24 IMPRESSION: No acute intracranial abnormality. Diffuse atrophic changes with findings suggesting chronic microvascular ischemia D/ / Louie Hare MD / Louie Hare MD Interpreting Provider: Louie Hare MD Abdomen/Pelvis CT 07/08/19 22:27 IMPRESSION: 1. Moderate free fluid identified in the upper abdomen of unclear etiology. Inflammatory stranding is also seen adjacent to the pancreas. Mild wall thickening of the pylorus is present. Differential considerations include duodenitis, peptic ulcer disease, or acute pancreatitis. Correlate with symptoms and laboratory values. 2. Subtle ground-glass nodular opacities in the upper lung zones. Findings favor an infectious/inflammatory etiology. Recommend repeat CT in 6 months. 3. Cardiomegaly. 4. Cholecystectomy. 5. Diverticulosis. D/ / 07/08/2019 22:43:30 Shyanne Mohan MD / terry Interpreting Provider: Shyanne Mohan MD Cervical Spine CT 07/08/19 22:27 IMPRESSION: No acute abnormality of the cervical spine. Lexwirvz-jz-eabvke multilevel degenerative changes. D/ / 07/08/2019 22:31:31 Shyanne Mohan MD / terry Interpreting Provider: Shyanne Mohan MD Chest CT 07/08/19 22:27 IMPRESSION: 1. Moderate free fluid identified in the upper abdomen of unclear etiology. Inflammatory stranding is also seen adjacent to the pancreas. Mild wall thickening of the pylorus is present. Differential considerations include duodenitis, peptic ulcer disease, or acute pancreatitis. Correlate with symptoms and laboratory values. 2. Subtle ground-glass nodular opacities in the upper lung zones. Findings favor an infectious/inflammatory etiology. Recommend repeat CT in 6 months. 3. Cardiomegaly. 4. Cholecystectomy. 5. Diverticulosis. D/ / 07/08/2019 22:43:30 Shyanne Mohan MD / terry Interpreting Provider: Shyanne Moahn MD - Time Spent With Patient Total time spent is greater than 50% in coordination of care (as documented) at patient's floor/unit and/or counseling patient: - Attending Attestation I performed a history and physical exam of the patient on 07/08/19 and discussed management with the resident. I reviewed the resident's note and agree with the documented findings and plan of care. 73 year old man who presented in cardiac arrest with findings notable for V-tach that required cardioversion. HE was rep ortedly down at home for 25 minutes prior to EMS arrival and en route was agonal. He went into full arrest in the ER with V-tach noted. Amiodarone and 3 shocks were administered. Labs notable for severe acidosis and hyperkalemia with temporizing treatments started. Family members presented and expressed that his wishes were to be DNR-CC and did not want any life-saving measures as such and would have preferred to at home. Vasopressors and other supportive agents were stopped. Physical exam is remarkable for fixed and nonreactive pupils with agonal breathing movements, not responsive to any stimuli. He will remain intubated until the patients expected demise or a planned terminal extubation is performed once the family members reconvene in the ICU. In the interim, will start fentanyl as a continuous infusion for analgesia and comfort with benzos as needed to control any myoclonic jerking. DERRELL SALAZAR.
[2019-07-09] MEDS ORDERED: FentaNYL (PF) 1,000 MCG in 0.9 % Sodium Chloride 80 ML IVC SCH (03:15)
[2019-07-09] MEDS ORDERED: Amiodarone Premix 360 MG/200 ML BAG IVC SCH (03:45)
[2019-07-09] MEDS ORDERED: *HR* LORazepam 2 MG/ML VIAL IVP ONE ×2 (04:01→11:01)
--- NOTE | 2019-07-09 09:32 | Internal Med Progress Note ---
Hospitalist Progress Note - Encounter Date of Encounter: 07/09/19 Time of Encounter: 09:30 - Subjective Interval History: Mr. Felix is a 73 year old male who presented to ED in cardiac arrest by EMS after family had found the patient slumped over, not breathing at home. EMS performed CPR and bagged patient while en route. CPR continued in emergency depa rtment and there was ROSC, however cardiac rhythm was irregular and demonstrating V. tach multiple times. He was treated with amiodarone, electrical cardioversion, defibrillation, electrolyte replacement before spontaneous conversion to sinus rhythm. CVC and IO placed in emergency department. Norepinephrine and vasopressin drips were started during his arrest for hypotension. Initial lab workup significant for hyperkalemia 7.5, creatinine 4.3, WBC 14.3, hemoglobin 9.5 , and thrombocytopenia. Initial ABG significant for metabolic acidosis (pH 6.9, PCO2 53, PO2 51, bicarbonate 12), pH improved to 7.24 on repeat ABG. Patient was taken for CT imaging of head, cervical spine, chest, abdomen/pelvis. CT head negative for acute intracranial process and CT cervical spine negative for acute abnormality. CT of chest abdomen pelvis notable for ground glass nodular opacities in the upper zones of the lungs that may suggest infectious/inflammatory process; moderate free fluid of upper abdomen of unclear etiology, inflammatory stranding in peripancreatic area, thickened pylorus wall. Additional management in the emergency department included IV fluids and IV antibiotics; Precedex drip for sedation. ED physician discussed patient's critical status, including need for dialysis and antibiotics, with patient's family. Patient's family did not believe he would want dialysis or prolonged resuscitation and agreed on CODE STATUS of DNR-CC. He was transferred to the ICU for further management and ventilator support. 07/09: My partner's note from this morning as above. Patient has since been made DNR comfort care only. Patient is extubated, currently on a fentanyl drip. Presently he is not responding to stimuli but will occasionally have "jerking" motions in the bed. In between these episodes he does appear comfortable. A 10 point review of systems is unobtainable due to patient's altered mental status - Exam Vitals: Temp Pulse Resp BP Pulse Ox 95.3 F L 80 20 96/62 97 07/09/19 00:19 07/09/19 08:07/09/19 08:05 07/09/19 08:05 07/09/19 00:19 Exam: General: No acute distress, occasional jerking moments, but otherwise does not appear uncomfortable, laying in bed with eyes closed. He is cachectic. HEENT: head normocephalic/atraumatic, PERRL, sclera anicteric, dry oral mucosa Neck: trachea midline, no visible masses Cardio: regular rate, hypotensive, diminished peripheral pulses Pulm: coarse breath sounds bilaterally, equal chest rise, no wheezing, no respiratory distress Abdomen: soft, non-distended, active bowel sounds Extremities: Bilateral lower extremity edema, cool to palpation, faint radial pulse on palpation, no visible cyanosis MSK: no visible deformities, no joint swelling or erythema Neuro: Skin: dry, chronic appearing ulcers of feet and lower extremities, no visible rash Psych: Unable to assess mental status secondary to sedation - Summary of Assessment and Plan Summary of Assessment and Plan: Cardiac Arrest -Patient did have return of spontaneous circulation however tonight he was made comfort care only by hospitalist service who treated this pt overnight, after discussion with the family. No family present at this time but I will call and discuss with them. Palliative care is also consulted to assist with comfort care measures. Pt does remain on a fentanyl drip for comfort, will add benzodiazepine to, but will defer this to palliative care who is here presently. Acute hypoxemic respiratory failure Cardiogenic Shock Acute kidney injury Metabolic acidosis Hyperkalemia Pending further discussion with family and palliative care will plan for transfer out of the ICU today with ongoing comfort care measures. - Time Spent with Patient Total time spent is greater than 50% in coordination of care (as documented) at patient's floor/unit and/or counseling patient: Greater than 35 minutes Internal Medicine: Result - Labs CBC & Chem 7: 07/08/19 20:53 07/08/19 21:20 Labs: Short CBC 07/08/19 Range/Units 20:53 WBC 14.3 H (4.3-11.1) K/mcL Hgb 9.5 L (12.9-16.9) g/dL Hct 31.1 L (37.5-50.1) % Plt Count 111 L (140-400) K/mcL Neutrophils # 10.0 H (1.6-8.9) K/mcL BMP 07/08/19 21:20 Sodium 133 L Potassium 7.5 H* Chloride 103 Carbon Dioxide 16 L BUN 75 H Creatinine 4.30 H Glucose 224 H Calcium 10.2 Liver Function 07/08/19 Range/Units 21:20 Total Bilirubin 1.2 H (0.3-1.0) mg/dL Direct Bilirubin 0.5 H (0.0-0.2) mg/dL AST 198 H (13-39) Units/L ALT 107 H (7-52) Units/L Alkaline Phosphatase 103 (34-104) Units/L Albumin 3.0 L (3.5-5.7) g/dL - ABG Interpretation ABG results: ABG ABG pH 7.24 pH Units (7.32-7.45) L D 07/08/19 21:21 ABG pCO2 29 mmHg (35-45) L D 07/08/19 21:21 ABG pO2 302 mmHg (85-104) H D 07/08/19 21:21 ABG O2 Saturation 100 % (95-98) H 07/08/19 21:21 PT/INR, D-dimer PT 24.0 Seconds (9.4-12.1) H 07/08/19 20:53 - Impressions Impressions Head CT 07/08/19 22:24 IMPRESSION: No acute intracranial abnormality. Diffuse atrophic changes with findings suggesting chronic microvascular ischemia D/ / Louie Hare MD / Louie Hare MD Interpreting Provider: Louie Hare MD Abdomen/Pelvis CT 07/08/19 22:27 IMPRESSION: 1. Moderate free fluid identified in the upper abdomen of unclear etiology. Inflammatory stranding is also seen adjacent to the pancreas. Mild wall thickening of the pylorus is present. Differential considerations include duodenitis, peptic ulcer disease, or acute pancreatitis. Correlate with symptoms and laboratory values. 2. Subtle ground-glass nodular opacities in the upper lung zones. Findings favor an infectious/inflammatory etiology. Recommend repeat CT in 6 months. 3. Cardiomegaly. 4. Cholecystectomy. 5. Diverticulosis. D/ / 07/08/2019 22:43:30 Shyanne Mohan MD / terry Interpreting Provider: Shyanne Mohan MD Cervical Spine CT 07/08/19 22:27 IMPRESSION: No acute abnormality of the cervical spine. Ipofhxxf-jn-rmstkc multilevel degenerative changes. D/ / 07/08/2019 22:31:31 Shyanne Mohan MD / terry Interpreting Provider: Shyanne Mohan MD Chest CT 07/08/19 22:27 IMPRESSION: 1. Moderate free fluid identified in the upper abdomen of unclear etiology. Inflammatory stranding is also seen adjacent to the pancreas. Mild wall thickening of the pylorus is present. Differential considerations include duodenitis, peptic ulcer disease, or acute pancreatitis. Correlate with symptoms and laboratory values. 2. Subtle ground-glass nodular opacities in the upper lung zones. Findings favor an infectious/inflammatory etiology. Recommend repeat CT in 6 months. 3. Cardiomegaly. 4. Cholecystectomy. 5. Diverticulosis. D/ / 07/08/2019 22:43:30 Shyanne Mohan MD / terry Interpreting Provider: Shyanne Mohan MD Consult Discharge Plan - Plan Referrals: NONE,PCP [Primary Care Provider] -
[2019-07-09] MEDS ORDERED: *HR* FentaNYL (PF) 100 MCG/2 ML VIAL IVP PRN ×2 (09:45→16:02)
[2019-07-09] MEDS ORDERED: Haloperidol Lactate 5 MG/ML VIAL IVP PRN ×2 (09:47→16:02)
[2019-07-09] MEDS ORDERED: Glycopyrrolate 0.2 MG/ML VIAL IVP PRN ×2 (09:48→16:02)
[2019-07-09] MEDS: *HR* LORazepam 2 MG/ML VIAL IVP PRN ×2 (10:13→10:46)
--- NOTE | 2019-07-09 10:16 | Electrocardiograph Report ---
[facility] Test Date: 2019-07-08 Pat Name: Oziel Felix Department: [id number] Room: 12 Gender: M Digitizer: : 1945 Requested By: Edmundo Wesley Order Number: [id number] Reading MD: Isacc Edwards Measurements Intervals [place] Rate: 109 P: 111 VT: 110 QRS: -65 QRSD: 244 T: 135 QT: 436 QTc: 588 Interpretive Statements Undetermined tachyarrythmia, regular Right bundle branch block Abnrm T, probable ischemia, anterolateral lds Electronically Signed On 07-09-2019 10:14:33 EDT by Isacc Edwards
--- NOTE | 2019-07-09 10:19 | Electrocardiograph Report ---
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
[2019-07-09] MEDS ORDERED: LORazepam 20 MG in 0.9 % Sodium Chloride Excel Bg 240 ML IVC SCH (11:15)
[2019-07-09] MEDS ORDERED: *HR* Midazolam HCl 2 MG/2 ML VIAL IVP ONE ×3 (11:27→14:33)
--- NOTE | 2019-07-09 15:17 | Palliative - Consult Note ---
<JacksonIrene K - Last Filed: 07/09/19 16:22> Date of Encounter: 07/09/19 Time of Encounter: 15:50 - Assessment and Plan (1) Palliative care by specialist Status: Acute Assessment and plan: Pt is unable to make complex medical decisions d/t mental status. Multiple family members present at bedside today. Children are LNOK. Decision was made last night when patient came to ED to transition to comfort care. Pt was admitted to ICU for palliative extubation. Pt extubated early this morning 07/09/19 at 0041 per RT notes. Palliative Care consulted this morning to assist with end of life care/symptom management. Plan to transition to hospice GIP once family arrives. (2) End of life care Status: Acute Assessment and plan: End of Life Care: Generalized Pain: Continue IV Fentanyl gtt at 50mcg/hr. Recommend IV Fentanyl 25mcg Q15min PRN for breakthorugh pain/dyspnea. Dyspnea: Opioids as above will assist with sensation of shortness of breath. Agitation: Recommend IV Haldol 1mg Q4hr PRN for agitation. If dose ineffective, may increase to 2mg. (3) Seizure-like activity Status: Acute Assessment and plan: Upon my initial visit today, pt appeared to be presenting with seizure-like activity with intermittent rhythmical twitching noted. Per chart review, pt was given one-time bolus of 4mg Ativan last night per ICU team. Case discussed with primary ICU team, Gerard- 2A Pharmacist and Palliative Attending Dr. Grant. It was decided to start patient on 1mg PRN Ativan Q15min. Pt given two one-time doses of 1mg IV Ativan with little response. Seizure-like activity became more frequent, one-time IV bolus of 4mg Versed was given. Multiple visits to bedside today. Pt given additional dose of 2mg Versed as seizure-like activity continued. Subsequently, pt continued with seizure-like activity and was placed on continuos infusion of Versed at 2mg/hr. After multiple visits, pt continues to present with seizure-like activity, Versed dose increased to 4mg/hr. Case has been discussed with 2A pharmacist Gerard and Dr. Grant. Please notify Palliative Care if symptoms are not controlled. (4) Acute respiratory failure Status: Acute Assessment and plan: Secondary to cardiac arrest, was intubated and placed on ventilator in ED. Per family wishes, pt was transitioned to DNRCC and palliatively extubated at 0041 07/09. Qualifiers: Respiratory failure complication: unspecified whether with hypoxia or hypercapnia Qualified Code(s): J96.00 - Acute respiratory failure, unspecified whether with hypoxia or hypercapnia (5) MARY ANNE (acute kidney injury) Status: Acute Assessment and plan: Creat 4.3 upon admission, no baseline available. Pt transitioned to comfort care. (6) Cardiac arrest Status: Acute Palliative-CN HPI - Data of Consult Consult date: 07/09/19 Requesting Physician: Angela Keen MD Primary Care Provider: PCP NONE - Consult Narrative Palliative Care/Comfort Measures: Palliative care Reason for consult: assistance with end of life care History of present illness: Mr. Felix is a 73 year old male who p/w to ED in cardiac arrest after family found pt unresponsive at home. EMS performed CPR and bagged pt prior to arriving to ED. CPR was continued in ED and ROSC was obtained. Pt with multiple episodes of vtach, ABG showed significant acidosis, patient was taken to CT for imaging of the head, cervical spine, chest and abdomen/pelvis. After discussion the ED physician, it was ultimately decided to transition to full comfort care as family did not feel pt would want any aggressive measures. Pt was admitted to ICU for palliative extubation. Pt extubated early this morning 07/09/19 at 0041 per RT notes. Palliative Care consulted this morning to assist with end of life care/symptom management. Plan to transition to hospice GIP once family available. Upon my initial visit today, pt appeared to be presenting with seizure-like activity with intermittent rhythmical twitching noted. Per chart review, pt was given one-time bolus of 4mg Ativan last night per ICU team. Case discussed with primary ICU team, Alyssa Gutierrez Pharmacist and Palliative Attending Dr. Grant. It was decided to start patient on 1mg PRN Ativan Q15min. Pt given two one-time doses of 1mg IV Ativan with little response. Seizure-like activity became more frequent, one-time IV bolus of 4mg Versed was given. Multiple visits to bedside today. Pt given additional dose of 2mg Versed as seizure-like activity continued. Subsequently, pt continued with seizure-like activity and was placed on continuos infusion of Versed at 2mg/hr. After multiple visits, pt continues to present with seizure-like activity, Versed dose increased to 4mg/hr. Case has been discussed with 2A pharmacist Gerard and Dr. Grant. Patient being transitioned to [facility] hospice care. CC: Angela Keen MD Past Med Surg Social Fam HX - Past Medical History Medical history: diabetes, hypertension, renal disease - Social History Smoking Status: Unknown if ever smoked Medications and Allergies Allergy/AdvReac Type Severity Reaction Status Date / Time No Known Allergies Allergy Verified 07/08/19 20:58 ROS unobtainable: due to endotracheal tube, due to mental status Palliative Care-Exam - Constitutional Vitals: Temp Pulse Resp BP Pulse Ox 95.3 F L 80 20 78/43 97 07/09/19 00:19 07/09/19 08:05 07/09/19 08:05 07/09/19 13:57 07/09/19 00:19 Exam: CONSTITUTIONAL/GENERAL: Non-responsive, intermittent tremor noted. EYES: Pupils symmetric; non pinpoint. Reactive on exam. CARDIOVASCULAR: RESPIRATORY: Shallow breathing noted, no secretions noted. GENITOURINARY: Nova catheter present. MUSCULOSKELETAL: No deformities; No joint swelling or erythema. INTEGUMENTARY: Multiple wounds noted to feet. NEUROLOGIC: PSYCHIATRY: Unable to assess d/t mental status. Internal Medicine - CN: Reslt - Labs CBC & Chem 7: 07/08/19 20:53 07/08/19 21:20 Labs: Short CBC 07/08/19 Range/Units 20:53 WBC 14.3 H (4.3-11.1) K/mcL Hgb 9.5 L (12.9-16.9) g/dL Hct 31.1 L (37.5-50.1) % Plt Count 111 L (140-400) K/mcL Neutrophils # 10.0 H (1.6-8.9) K/mcL BMP 07/08/19 21:20 Sodium 133 L Potassium 7.5 H* Chloride 103 Carbon Dioxide 16 L BUN 75 H Creatinine 4.30 H Glucose 224 H Calcium 10.2 Liver Function 07/08/19 Range/Units 21:20 Total Bilirubin 1.2 H (0.3-1.0) mg/dL Direct Bilirubin 0.5 H (0.0-0.2) mg/dL AST 198 H (13-39) Units/L ALT 107 H (7-52) Units/L Alkaline Phosphatase 103 (34-104) Units/L Albumin 3.0 L (3.5-5.7) g/dL - ABG Interpretation ABG results: ABG ABG pH 7.24 pH Units (7.32-7.45) L D 07/08/19 21:21 ABG pCO2 29 mmHg (35-45) L D 07/08/19 21:21 ABG pO2 302 mmHg (85-104) H D 07/08/19 21:21 ABG O2 Saturation 100 % (95-98) H 07/08/19 21:21 PT/INR, D-dimer PT 24.0 Seconds (9.4-12.1) H 07/08/19 20:53 - Impressions Impressions Head CT 07/08/19 22:24 IMPRESSION: No acute intracranial abnormality. Diffuse atrophic changes with findings suggesting chronic microvascular ischemia D/ / Louie Hare MD / Louie Hare MD Interpreting Provider: Louie Hare MD Abdomen/Pelvis CT 07/08/19 22:27 IMPRESSION: 1. Moderate free fluid identified in the upper abdomen of unclear etiology. Inflammatory stranding is also seen adjacent to the pancreas. Mild wall thickening of the pylorus is present. Differential considerations include duodenitis, peptic ulcer disease, or acute pancreatitis. Correlate with symptoms and laboratory values. 2. Subtle ground-glass nodular opacities in the upper lung zones. Findings favor an infectious/inflammatory etiology. Recommend repeat CT in 6 months. 3. Cardiomegaly. 4. Cholecystectomy. 5. Diverticulosis. D/ / 07/08/2019 22:43:30 Shyanne Mohan MD / terry Interpreting Provider: Shyanne Mohan MD Cervical Spine CT 07/08/19 22:27 IMPRESSION: No acute abnormality of the cervical spine. [id number] multilevel degenerative changes. D/ / 07/08/2019 22:31:31 Shyanne Mohan MD / terry Interpreting Provider: Shyanne Mohan MD Chest CT 07/08/19 22:27 IMPRESSION: 1. Moderate free fluid identified in the upper abdomen of unclear etiology. Inflammatory stranding is also seen adjacent to the pancreas. Mild wall thickening of the pylorus is present. Differential considerations include duodenitis, peptic ulcer disease, or acute pancreatitis. Correlate with symptoms and laboratory values. 2. Subtle ground-glass nodular opacities in the upper lung zones. Findings favor an infectious/inflammatory etiology. Recommend repeat CT in 6 months. 3. Cardiomegaly. 4. Cholecystectomy. 5. Diverticulosis. D/ / 07/08/2019 22:43:30 Shyanne Mohan MD / terry Interpreting Provider: Shyanne Mohan MD Consult Discharge Plan - Plan Referrals: NONE,PCP [Primary Care Provider] - Palliative Quality Palliative Quality: Screen for Code Status: NA (Pt transitioned to DNRCC last night per ED/ICU team.), Screen for Goals of Care: NA, Screen for Pain: Yes, If Pain Regimen Started, Initiate Bowel Regimen: NA, Screen for Nausea/Vomitting: NA Code Status: 07/08/19 23:15 CODE [Resuscitation Status: Active] [RES] Stat Comment: Resuscitation Status: DNR-Comfort Care <Kendy Grant - Last Filed: 07/10/19 08:55> Date of Encounter: 07/10/19 Palliative-CN HPI - Data of Consult Requesting Physician: Angela Keen MD Primary Care Provider: PCP NONE - Consult Narrative History of present illness: Mr. Felix is a 73 year old male CC: Angela Keen MD - Time Spent with Patient Time: Total time spent is greater than 50% in coordination of care (as documented) at patient's floor/unit and/or counseling patient: Palliative Care-Exam - Constitutional Vitals: Temp Pulse Resp BP Pulse Ox 95.3 F L 49 14 74/44 96 07/09/19 00:19 07/09/19 17:25 07/09/19 17:25 07/09/19 17:25 07/09/19 17:25 Internal Medicine - CN: Reslt - Labs CBC & Chem 7: 07/08/19 20:53 07/08/19 21:20 - ABG Interpretation ABG results: ABG ABG pH 7.24 pH Units (7.32-7.45) L D 07/08/19 21:21 ABG pCO2 29 mmHg (35-45) L D 07/08/19 21:21 ABG pO2 302 mmHg (85-104) H D 07/08/19 21:21 ABG O2 Saturation 100 % (95-98) H 07/08/19 21:21 PT/INR, D-dimer PT 24.0 Seconds (9.4-12.1) H 07/08/19 20:53 - Attending Attestation I examined this patient and my medical decision-making was reviewed with the Nurse practitioner.. I agree with the documented findings, disposition and treatment plan as described except to the extent set forth below. We independently had [id number] contact with the patient. Palliative care was called for symptom management of Mr. Oziel Felix. Oziel was admitted s/p cardiac arrest, after CPR, intubation and ROSC, family declared that it was against patient's wishes to be kept alive artificially, so patient was made DNRCC in the ED and extubated in the ICU. At the time of exam, patient was was unresponsive, presenting seizure-like activity. Several interventions were made to terminate the seizure, and patient was eventually started on Versed drip. Refer to [employer]'s note for more details. Patient to be transferred to a palliative care bed and transitioned to hospice GIP for seizure management and end of life care. Palliative Quality Code Status: 07/08/19 23:15 CODE [Resuscitation Status: Active] [RES] Stat Comment: Resuscitation Status: DNR-Comfort Care
[2019-07-09 17:26] VITALS: BP 74/44
== END 2019-07-09 17:40 | disposition hospice, inpatient (51) | DRG 296 ==
LOC: EMEROOARM 20:44 → ICNU 23:23 → 2ANU 07-09 16:17
PROVIDERS: ADMIT Internal Medicine; ATTEND Internal Medicine

== ENCOUNTER 2019-07-09 16:22 | Inpatient (IN) ==
[2019-07-09] MEDS ORDERED: Haloperidol Lactate 5 MG/ML VIAL IVP PRN (16:40)
[2019-07-09] MEDS ORDERED: Atropine Sulfate 1% 40 DROP/2 ML BOTTLE SL PRN (16:40)
[2019-07-09] MEDS ORDERED: *HR* Midazolam HCl 5 MG/5 ML VIAL IVP PRN (16:44)
[2019-07-09] MEDS ORDERED: FentaNYL (PF) 1,000 MCG in 0.9 % Sodium Chloride 80 ML IVC SCH (16:45)
[2019-07-09] MEDS ORDERED: Scopolamine Patch 1.5 MG PATCH.TD72 TD SCH (16:45)
[2019-07-09 19:09] VITALS: BP 77/51
--- NOTE | 2019-07-10 09:01 | Pallative History & Physical ---
Date of Encounter: 07/10/19 Time of Encounter: 08:57 Assessment and Plan (1) Palliative care by specialist Status: Acute Patient before being seen this morning. Internal Medicine - H&P: HPI Chief complaint: s/p cardiac arrest Admitted From: Intrahospital Transfer Plans for Post Hospital Care: at Medical Facility History of present illness: Mr. Felix is a 73 year old male admitted s/p cardiac arrest,. After CPR, intubation and ROSC, family declared that it was against patient's wishes to be kept alive artificially, so patient was made DNRCC in the ED and extubated in the ICU. Palliative care was called for symptom management. At the time, patient was was unresponsive, presenting seizure-like activity. Several interventions were made to terminate the seizure, and patient was eventually started on Versed drip. Patient was transferred to a palliative care bed and transitioned to hospice GIP for seizure management and end of life care. He peacefully overnight. Past Med Surg Social Fam HX - Past Medical History Medical history: diabetes, hypertension, renal disease - Social History Smoking Status: Unknown if ever smoked Internal Medicine - H&P: Meds Allopurinol [Zyloprim 300 MG] 300 mg PO DAILY 07/09/19 [History] Furosemide [Lasix] 20 mg PO DAILY 07/09/19 [History] Lisinopril [Zestril] 20 mg PO DAILY 07/09/19 [History] Metformin HCl 500 mg PO BID 07/09/19 [History] Metoprolol [Lopressor] 25 mg PO BID 07/09/19 [History] Potassium Chloride [Klor-Con 10] 10 meq PO DAILY 07/09/19 [History] Rivaroxaban [Xarelto] 20 mg PO DAILY 07/09/19 [History] SitaGLIPtin [Januvia] 100 mg PO DAILY 07/09/19 [History] Allergy/AdvReac Type Severity Reaction Status Date / Time No Known Allergies Allergy Verified 07/08/19 20:58 Review of systems: patient Palliative Care-Exam - Constitutional Vitals: Temp Pulse Resp BP Pulse Ox 97.9 F 84 14 77/51 93 07/09/19 19:04 07/09/19 19:04 07/09/19 19:04 07/09/19 19:04 07/09/19 19:04 Exam: patient before exam. Palliative Quality Palliative Quality: Screen for Code Status: NA, Screen for Goals of Care: NA, Screen for Pain: NA, If Pain Regimen Started, Initiate Bowel Regimen: NA, Screen for Nausea/Vomitting: NA Code Status: 07/09/19 16:40 Resuscitation Status: Active [RES] Routine Comment: Resuscitation Status: DNR-Comfort Care
--- NOTE | 2019-07-10 09:07 | Death Note ---
Discharge Sum: Summary - Date and Time Date of admission: 07/09/19 17:44 Date of : 07/10/19 Time of : 00:40 - Additional Data Confirmation of as documented by pronouncing clinician: no pulse, no respirations, no heart sounds, pupils fixed and dilated Family: at bedside Attending/PCP notified?: Yes Attending physician: Kendy Grant MD Was code activated?: No Autopsy requested?: No questioned documents examiner notified?: No Organ bank notified?: Yes Advance directives: Yes Hospice patient?: Yes Discharge Sum: Diag - PCOD Probable Cause of : Cardiac arrest Discharge Sum: Prov - Provider Primary care physician: PCP NONE Admitting clinician: Kendy Grant Attending physician on admission: Kendy Grant Consults: 07/09/19 16:40 Consult to Palliative Care [CONS] Routine Comment: Consulting Provider: Palliative Care Luz Reason for Consult: GIP Time Notified: 16:42 Call Completed: Yes Pronouncing clinician: Marion Mai
== END 2019-07-10 00:40 | disposition expired | DRG 951 ==
LOC: 2ANU 17:44
PROVIDERS: ADMIT Internal Medicine Hospice and Palliative Medicine; ATTEND Internal Medicine Hospice and Palliative Medicine